=== PATIENT | female | born 1945 ===

== ENCOUNTER 2024-11-03 18:19 | Inpatient (IN) | payer OTHER ==
[2024-11-03] MEDS ORDERED: LORazepam 1 MG TAB PO PRN (19:30)
[2024-11-03] MEDS ORDERED: Water, Sterile 10 ML VIAL IM PRN (19:30)
[2024-11-03] MEDS ORDERED: Ziprasidone Mesylate 20 MG VIAL IM PRN (19:30)
[2024-11-03] MEDS ORDERED: ZOCOR40 MG PO (19:33)
[2024-11-03] MEDS ORDERED: ANASTROZOLE1 M1 PO (19:33)
[2024-11-03] MEDS ORDERED: ASPIRIN81 M1 PO (19:35)
[2024-11-03] MEDS ORDERED: MULTIPLE VITAM1 EAC2 PO (19:41)
[2024-11-03] MEDS ORDERED: FEROSUL325 MG PO (19:45)
[2024-11-03] MEDS ORDERED: VITAMIN D3250 MC1 PO (19:51)
[2024-11-03] MEDS ORDERED: B12 ACTIVE1000 MCG PO (19:52)
[2024-11-03] MEDS ORDERED: NORVASC5 MG PO (19:53)
[2024-11-03 20:00] VITALS: BP 153/72
[2024-11-03] MEDS ORDERED: MG-AL HYDROXIDE/SIMETICONE 30 ML UDC PO PRN (20:00)
[2024-11-03] MEDS ORDERED: Magnesium Hydroxide 30 ML UDC PO PRN (20:00)
[2024-11-03] MEDS ORDERED: ACETAMINOPHEN 325 MG TAB PO PRN (20:00)
[2024-11-03] MEDS ORDERED: Menthol/Zinc Oxide 4 GM THIN T PRN (20:15)
[2024-11-03] MEDS ORDERED: Memantine Hydrochloride 5 MG TAB PO SCH (21:00)
[2024-11-03] MEDS ORDERED: Fosfomycin Tromethamine 3 GM PDS PO ONE (22:15)
[2024-11-04 06:23] LABS: BASO % 0.8 % (0.0-1.0); EOS # 0.1 10*3/uL (0.0-0.4); EOS % 2.5 % (1.0-4.0); HEMATOCRIT 26.2 % (37.0-47.0); MEAN CELL VOLUME 89.1 fl (81.0-99.0); MEAN CORPUSCULAR HGB 28.2 pg (27.0-31.0); MEAN CORPUSCULAR HGB CONC 31.7 g/dl (33.0-37.0); MEAN PLATELET VOLUME 10.8 fl (9.6-12.3); MONO # 0.6 10*3/uL (0.1-1.0); MONO % 10.8 % (3.0-9.0); NEUT # 3.1 10*3/uL (2.3-7.9); NEUT % 59.8 % (47.0-73.0); PLATELET COUNT AUTOMATED 315 10*3/uL (130-400); RED BLOOD COUNT 2.94 10*6/uL (4.10-5.10); RED CELL DISTRI WIDTH 14.6 % (0-14.5); WHITE BLOOD COUNT 5.1 10*3/uL (4.8-10.8)
[2024-11-04 06:41] LABS: POTASSIUM 4.5 mmol/L (3.4-5.1); TOTAL PROTEIN 6.8 gm/dL (6.0-8.0)
[2024-11-04 06:55] LABS: VITAMIN D, 25-HYDROXY 42.5 ng/mL (30-100)
[2024-11-04 08:00] VITALS: BP 128/48
[2024-11-04] MEDS ORDERED: Rivastigmine Tartrate 4.6 MG/24 HR PATCH T SCH (09:00)
[2024-11-04] MEDS ORDERED: amLODIPine besylate 5 MG TAB PO SCH (09:00)
[2024-11-04] MEDS ORDERED: ANASTROZOLE 1 MG TAB PO SCH (09:00)
[2024-11-04] MEDS ORDERED: ASPIRIN ENTERIC COATED 81 MG TAB PO SCH (09:00)
[2024-11-04] MEDS ORDERED: CYANOCOBALAMIN 500 MCG TAB PO SCH (09:00)
[2024-11-04] MEDS ORDERED: SIMVASTATIN 20 MG TAB PO SCH (09:00)
[2024-11-04 20:00] VITALS: BP 148/59
[2024-11-04] MEDS ORDERED: risperiDONE 0.5 MG TAB PO SCH (21:00)
[2024-11-04] MEDS ORDERED: MULTIVITAMIN 1 TAB TAB PO SCH (21:00)
[2024-11-04] MEDS ORDERED: FERROUS SULFATE 325 MG TAB PO SCH (21:00)
[2024-11-04] MEDS ORDERED: Vitamin D 400 IU TAB (10 MCG) PO SCH (21:00)
[2024-11-05 08:00] VITALS: BP 133/59
[2024-11-05] MEDS ORDERED: ANASTROZOLE 1 MG TAB PO SCH (09:00)
[2024-11-05 20:00] VITALS: BP 135/79
[2024-11-05] MEDS ORDERED: Memantine Hydrochloride 5 MG TAB PO SCH (21:00)
[2024-11-06 08:00] VITALS: BP 96/49
[2024-11-06 09:48] LABS: BILIRUBIN Negative (Negative); BLOOD 3+ (Negative); CLARITY Turbid (Clear); COLOR Yellow (Yellow); GLUCOSE Negative (Negative); KETONE Negative (Negative); LEUKO ESTERASE 3+ (Negative); NITRITE Positive (Negative); PH 6.5 (4.5-8.0); SPECIFIC GRAVITY 1.015 (1.001-1.030); UROBILINOGEN 0.2 E.U./dl (0.0-1.0)
[2024-11-06 10:30] LABS: WBC TNTC wbc/hpf (0-5)
[2024-11-06] MEDS ORDERED: CEFDINIR 300 MG CAP PO SCH (10:36)
[2024-11-06 20:04] VITALS: BP 124/56
[2024-11-07 08:00] VITALS: BP 135/44
[2024-11-07] MEDS ORDERED: Rivastigmine Tartrate 9.5 MG/24 HR PATCH T SCH (09:00)
[2024-11-07 20:00] VITALS: BP 128/54
[2024-11-07] MEDS ORDERED: Memantine Hydrochloride 10 MG TAB PO SCH (21:00)
[2024-11-08 06:23] LABS: BASO % 0.5 % (0.0-1.0); EOS # 0.3 10*3/uL (0.0-0.4); EOS % 4.2 % (1.0-4.0); HEMATOCRIT 27.2 % (37.0-47.0); MEAN CELL VOLUME 91.9 fl (81.0-99.0); MEAN CORPUSCULAR HGB 27.7 pg (27.0-31.0); MEAN CORPUSCULAR HGB CONC 30.1 g/dl (33.0-37.0); MEAN PLATELET VOLUME 11.2 fl (9.6-12.3); MONO # 0.7 10*3/uL (0.1-1.0); MONO % 12.4 % (3.0-9.0); NEUT # 3.7 10*3/uL (2.3-7.9); NEUT % 62.3 % (47.0-73.0); PLATELET COUNT AUTOMATED 269 10*3/uL (130-400); RED BLOOD COUNT 2.96 10*6/uL (4.10-5.10); RED CELL DISTRI WIDTH 14.6 % (0-14.5)
[2024-11-08 06:38] LABS: TOTAL PROTEIN 6.6 gm/dL (6.0-8.0)
[2024-11-08 08:00] VITALS: BP 110/58
[2024-11-08] MEDS ORDERED: Memantine Hydrochloride 5 MG TAB PO SCH (09:00)
[2024-11-08 20:00] VITALS: BP 119/46
[2024-11-09] MEDS ORDERED: NAMENDA-5 PO (09:17)
[2024-11-09] MEDS ORDERED: MEMANTINE HCL10 MG PO (09:17)
[2024-11-09] MEDS ORDERED: RISPERIDONE0.5 MG PO (09:17)
[2024-11-09] MEDS ORDERED: RIVASTIGMINE1 EAC1 T (09:17)
[2024-11-09] MEDS ORDERED: CEFDINIR300 MG PO (09:24)
== END 2024-11-09 10:40 | disposition home or self-care (01) | DRG 885 ==
LOC: 3N 18:19
PROVIDERS: Counselor Professional; ADMIT Psychiatry & Neurology Psychiatry; ATTEND Psychiatry & Neurology Psychiatry
PROC: GZHZZZZ Group Psychotherapy (ICD-10-PCS; principal; 2024-11-03)
PROC: GZ51ZZZ Individual Psychotherapy, Behavioral (ICD-10-PCS; 2024-11-03)
DX: F32.3 Major depressive disorder, single episode, severe with psychotic features (principal); N39.0 Urinary tract infection, site not specified; F02.83 Dementia in other diseases classified elsewhere, unspecified severity, with mood disturbance; F23 Brief psychotic disorder; E44.0 Moderate protein-calorie malnutrition; I10 Essential (primary) hypertension; G30.9 Alzheimer's disease, unspecified; D64.9 Anemia, unspecified; E78.5 Hyperlipidemia, unspecified; F17.210 Nicotine dependence, cigarettes, uncomplicated; I25.10 Atherosclerotic heart disease of native coronary artery without angina pectoris; E87.8 Other disorders of electrolyte and fluid balance, not elsewhere classified; M81.0 Age-related osteoporosis without current pathological fracture; Z86.73 Personal history of transient ischemic attack (TIA), and cerebral infarction without residual deficits; Z88.1 Allergy status to other antibiotic agents; Z88.8 Allergy status to other drugs, medicaments and biological substances; Z95.1 Presence of aortocoronary bypass graft; Z85.3 Personal history of malignant neoplasm of breast; Z83.3 Family history of diabetes mellitus; Z79.899 Other long term (current) drug therapy; Z79.82 Long term (current) use of aspirin